=== PATIENT | female | born 1985 | race Hispanic/Latino ===

== ENCOUNTER 2022-04-29 03:26 | Emergency (ER) | payer OTHER ==
[~2022-04-29] VITALS: Ht 172.7 cm; Wt 75.7 kg
[2022-04-29 03:36] VITALS: BP 134/75
[2022-04-29] MEDS ORDERED: CEFTRIAXONE 1G VIAL ONE (03:52)
[2022-04-29] MEDS ORDERED: IBUPROFEN 600 MG TABLET ONE (03:52)
[2022-04-29] MEDS ORDERED: HYDROCODONE/ACETAMINOPHEN 5/325 MG TAB ONE (03:52)
[2022-04-29] MEDS ORDERED: DEXAMETHASONE 4 MG TAB ONE (03:52)
[2022-04-29] MEDS ORDERED: AMOX1TAB16 PO (03:55)
[2022-04-29] MEDS ORDERED: ACET-2079 PO (03:55)
[2022-04-29] MEDS ORDERED: IBUP-2070 PO (03:55)
[2022-04-29] MEDS ORDERED: METH4TAB3 PO (03:55)
[2022-04-29] MEDS ORDERED: HYDROCODONE/ACETAMINOPHEN 5/325 MG TAB PO ONE (04:00)
[2022-04-29] MEDS ORDERED: CEFTRIAXONE 1G VIAL IM ONE (04:00)
[2022-04-29] MEDS ORDERED: IBUPROFEN 600 MG TABLET PO ONE (04:00)
[2022-04-29] MEDS ORDERED: DEXAMETHASONE 4 MG TAB PO SCH (04:00)
== END 2022-04-29 04:07 | disposition home or self-care (01) ==
LOC: EDH 03:26
DX: K04.7 Periapical abscess without sinus (principal); L03.211 Cellulitis of face
CPT/HCPCS: 99284; 96372; J0696; J8540

== ENCOUNTER 2022-09-02 16:50 | Emergency (ER) | payer MEDICAID ==
[~2022-09-02] VITALS: Ht 154.9 cm; Wt 77.1 kg
[~2022-09-02 16:50] MED LIST: ACET-2079 PO; AMOX1TAB16 PO; IBUP-2070 PO; METH4TAB3 PO
[2022-09-02 18:00] VITALS: BP 157/84
[2022-09-02] MEDS ORDERED: KETOROLAC 30MG VIAL (30MG/ML) IM ONE (19:00)
[2022-09-02] MEDS ORDERED: IBUP-2070 PO (19:01)
== END 2022-09-02 19:14 | disposition home or self-care (01) ==
LOC: EDH 16:50
DX: J02.8 Acute pharyngitis due to other specified organisms (principal); B97.89 Other viral agents as the cause of diseases classified elsewhere; Z20.822 Contact with and (suspected) exposure to COVID-19
CPT/HCPCS: 99283; 87635; 87880; 87804 ×2; 96372; C9803; J1885

== ENCOUNTER 2024-05-28 05:59 | Emergency (ER) | payer SELFPAY ==
[~2024-05-28] VITALS: Ht 154.9 cm; Wt 73.5 kg
[2024-05-28] MEDS ORDERED: IBUP-2070 PO (07:51)
[2024-05-28] MEDS ORDERED: AMOX-426 PO (07:51)
[2024-05-28] MEDS: ketOROlac 15MG/ML VIAL (15MG/ML) IM ONE (08:05)
[2024-05-28 08:27] VITALS: BP 150/70; PULSE 90; RESP 16; TEMP 98; O2SAT 98
== END 2024-05-28 09:18 | disposition home or self-care (01) ==
LOC: EDH 05:59
DX: K04.7 Periapical abscess without sinus (principal); L03.211 Cellulitis of face; Z79.899 Other long term (current) drug therapy
CPT/HCPCS: 99283; 81025; 96372; J1885

== ENCOUNTER 2024-12-09 22:25 | Emergency (ER) | payer SELFPAY ==
[~2024-12-09] VITALS: Ht 149.9 cm; Wt 72.6 kg
[~2024-12-09 22:25] MED LIST changes: +AMOX-426 PO
[2024-12-09 22:51] LABS: BASOPHILS # (AUTO) 0.14 K/uL (0.00-0.20); BASOPHILS % (AUTO) 1.3 % (0.0-5.0); EOSINOPHILS # (AUTO) 0.04 K/uL (0.00-0.70); EOSINOPHILS % (AUTO) 0.4 % (0.0-8.0); HEMATOCRIT 39.9 % (36-48); IMMATURE GRANULOCYTE ABSOLUTE 0.06 K/uL (0-1); LYMPHOCYTES % (AUTO) 18.8 % (21.0-51.0); MEAN CORPUSCULAR HEMOGLOBIN 30.5 pg (27.0-33.0); MEAN CORPUSCULAR HGB CONC 34.1 g/dL (32.0-36.0); MEAN CORPUSCULAR VOLUME 89.5 fL (79-99); MONOCYTES # (AUTO) 0.7 K/uL (0.1-1.0); MONOCYTES % (AUTO) 6.4 % (3.0-13.0); NEUTROPHILS # (AUTO) 7.9 K/uL (1.8-7.7); NEUTROPHILS % (AUTO) 72.5 % (40.0-77.0); PLATELET COUNT (AUTO) 250 K/uL (130-400); RED BLOOD CELL COUNT(AUTO) 4.46 MIL/uL (4.00-5.50); RED CELL DISTRIBUTION WIDTH 12.2 % (11.0-15.5); WHITE BLOOD COUNT (AUTO) 10.8 K/uL (4.8-10.8)
[2024-12-09 23:04] LABS: CREATININE 0.8 mg/dL (0.5-1.0)
--- NOTE | 2024-12-09 23:08 | HMCIMG ---
CHEST 1VW HISTORY: Chest pain COMPARISON: None FINDINGS: A frontal projection of the chest was obtained. No acute pulmonary infiltrates is seen. The heart is normal in size. Prominent interstitial markings are seen. No evidence of aortic calcification is seen. IMPRESSION: 1. No acute pulmonary infiltrate is seen.
[2024-12-09 23:20] LABS: POTASSIUM 2.7 mmol/L (3.5-5.1)
[2024-12-09 23:33] LABS: APPEARANCE,URINE CLEAR (CLEAR); BILIRUBIN,URINE NEGATIVE (NEGATIVE); COLOR,URINE COLORLESS (YELLOW); GLUCOSE, URINE (UA) NEGATIVE (NEGATIVE); KETONES,URINE NEGATIVE (NEGATIVE); LEUKOCYTE ESTERASE ,URINE 25 Leu/uL (NEGATIVE); NITRATE,URINE NEGATIVE (NEGATIVE); OCCULT BLOOD,URINE NEGATIVE (NEGATIVE); PH,URINE 6.5 (5.0-8.0); PROTEIN,URINE NEGATIVE (NEGATIVE); UROBILINOGEN,URINE 0.2 mg/dL (0.2-1.0)
[2024-12-09 23:33] LABS: B-TYPE NATRIURETIC PEPTIDE 16 pg/mL (0-100)
[2024-12-09 23:34] LABS: ADD UA MICROSCOPIC YES
[2024-12-09 23:37] LABS: BACTERIA,URINE RARE /HPF (None Seen); RBC,URINE 0-1 /HPF (0-1); SQUAMOUS EPITHELIAL CELL,UR MOD /HPF (0-2); WBC,URINE 0-1 /HPF (0-1)
[2024-12-09 23:40] VITALS: TEMP 97.9
[2024-12-09] MEDS: PoTASSium BIcarbonate/CIT AC 25 MEQ TABLET.EFF PO ONE (23:44)
[2024-12-10 00:30] VITALS: BP 131/67; PULSE 71; RESP 20; O2SAT 97
--- NOTE | 2024-12-10 00:33 | ERN ---
ED Note History of Present Illness Stated Complaint: CHEST PAIN Chief Complaint: Chest Pain Time Seen by MD: 22:34 Time Seen by Midlevel: 22:34 Dictation: The patient is a 38-year-old female with a history of who presents to the emergency department with complaints of chest pain onset Wednesday. Patient reports chest pain is intermediate and reports she initially fell burning sensation and then she started feeling stabbing sensation. Denies any nausea or vomiting, denies abdominal pain. No other complaints reported Allergies: Coded Allergies: No Known Drug Allergies (Verified Allergy, 03/03/13) Home Meds Active Scripts Ibuprofen (Ibuprofen) 600 Mg Tablet, 600 MG PO Q6H PRN for PAIN, #30 TAB Prov:AALIYAH PRETTY MD 05/28/24 Amoxicillin/Potassium Clav (Augmentin 500-125 Tablet) 500 Mg-125 Mg Tablet, 1 EACH PO BID for 7 Days, #14 TAB Prov:AALIYAH PRETTY MD 05/28/24 Ibuprofen (Ibuprofen) 600 Mg Tablet, 600 MG PO Q6H PRN for PAIN, #20 TAB Prov:HIMANSHU MCCLENDON V FRET SAW OPERATOR 09/02/22 Ibuprofen (Ibuprofen) 600 Mg Tablet, 600 MG PO Q6H PRN for PAIN, #30 TAB Prov:IDALMIS LAGUNA MD 04/29/22 Acetaminophen with Codeine (Acetaminophen-Cod #3 Tablet) 1 Each Tablet, 1 TAB PO Q6H PRN for PAIN LEVEL 7 TO 10, #15 TAB Prov:IDALMIS LAGUNA MD 04/29/22 Amoxicillin/Potassium Clav (Amox Tr-K Clv 875-125 mg Tab) 1 Each Tablet, 1 EACH PO BID for 7 Days, #14 TAB Prov:IDALMIS LAGUNA MD 04/29/22 Methylprednisolone (Medrol) 4 Mg Tab.ds.pk, 4 MG PO AD for 5 Days, #1 KIT Prov:IDALMIS LAGUNA MD 04/29/22 Past Medical History Past Medical History: No Pertinent History Surgical History: BTL, Family History: Negative Social History: Negative, Lives with family History: Not Applicable RN Note Reviewed/Agreed w/PFSH: Yes Review of System Dictation Constitutional: Negative for fever,chills, and weight loss Eyes: Negative for injury, pain,redness, and discharge ENT: Negative for injury,pain or swelling Cardiovascular: Negative for palpitations, and edema positive for chest pain Respiratory: Negative for shortness of breath, cough, and wheezing, Abdomen/GI: Negative for abdominal pain, nausea, vomiting, diarrhea, and constipation Back: Negative for injury and pain : Negative for injury, bleeding and discharge MS/Extremity: Negative for injury and deformity Skin: Negative for rash, and discoloration Neuro: Negative for headache, weakness, numbness, tingling, and seizure Psych: Negative for suicide ideation, homicidal ideation, and hallucinations Initial Vital Sign VS Vital Signs Date Time Temp Pulse Resp B/P (MAP) Pulse Ox O2 Delivery O2 Flow Rate FiO2 12/09/24 22:26 97.9 68 18 157/112 100 Room Air 12/09/24 23:40 0 21 Physical Exam Dictation Vital Signs reviewed General Appearance: Alert, oriented x 3, no acute distress, well developed, nourished. Head and Face: non-traumatic. Eyes: PERRL, pink conjunctivas, eyelid no trauma, anterior chamber with arcus senilis. Ears: Pinnas intact and no signs of trauma or erythema ear canals clear and no discharge TM no erythema Nose: No discharge, no bleeding. Oropharynx: Mouth normal, tongue pink. pharynx clear,no erythema, tonsils no exudates, no abscesses noted, mucous membrane moist Neck: Supple, non-tender, no thyromegaly, no masses, no JVD, no bruits Breast:Deferred Chest:No tenderness, no crepitus, no paradoxical movement, no retractions Lungs:Clear, well-ventilated, symmetric, no rales, no wheezing, no rhonchi, no stridor, good breath sounds bilaterally Heart: Regular rate, regular rhythm, no murmur, no gallops Vascular: no peripheral edema, Abdomen: Soft, positive bowel sounds, nondistended, no guarding, nontender, no rebound, no masses no hepatomegaly, no splenomegaly, no Short's sign, no hernias. Rectal: Deferred Genital: Deferred Neurological: Normal speech, motor function intact, sensory function intact Musculoskeletal: Neck nontender, full range of motion, back nontender, full range of motion, Extremities: nontender, full range of motion Skin: Color pink, dry, no turgor, no rash, no lacerations, no abrasions, no contusions. Lymphatic: Deferred Results (Laboratory/Radiology) Laboratory/Radiology Laboratory Tests Test 12/09/24 22:44 12/09/24 23:00 12/10/24 00:28 White Blood Count 10.8 K/uL (4.8-10.8) Red Blood Count 4.46 MIL/uL (4.00-5.50) Hemoglobin 13.6 g/dL (12.0-16.0) Hematocrit 39.9 % (36-48) Mean Corpuscular Volume 89.5 fL (79-99) Mean Corpuscular Hemoglobin 30.5 pg (27.0-33.0) Mean Corpuscular Hemoglobin Concent 34.1 g/dL (32.0-36.0) Red Cell Distribution Width 12.2 % (11.0-15.5) Platelet Count 250 K/uL (130-400) Mean Platelet Volume 10.7 fL (7.5-10.5) H Immature Granulocyte % (Auto) 0.6 % (0-1) Neutrophils (%) (Auto) 72.5 % (40.0-77.0) Lymphocytes (%) (Auto) 18.8 % (21.0-51.0) L Monocytes (%) (Auto) 6.4 % (3.0-13.0) Eosinophils (%) (Auto) 0.4 % (0.0-8.0) Basophils (%) (Auto) 1.3 % (0.0-5.0) Neutrophils # (Auto) 7.9 K/uL (1.8-7.7) H Lymphocytes # (Auto) 2.0 K/uL (1.0-4.8) Monocytes # (Auto) 0.7 K/uL (0.1-1.0) Eosinophils # (Auto) 0.04 K/uL (0.00-0.70) Basophils # (Auto) 0.14 K/uL (0.00-0.20) Absolute Immature Granulocyte (auto 0.06 K/uL (0-1) Nucleated Red Blood Cells 0.0 % (0.0-0.19) Sodium Level 135 mmol/L (136-145) L Potassium Level 2.7 mmol/L (3.5-5.1) *L 3.9 mmol/L (3.5-5.1) Chloride Level 98 mmol/L (101-111) L Carbon Dioxide Level 31 mmol/L (21-32) Blood Urea Nitrogen 11 mg/dL (7-18) Creatinine 0.8 mg/dL (0.5-1.0) Glomerular Filtration Rate Calc 97 mL/min (>90) Random Glucose 91 mg/dL (70-105) Total Calcium 9.4 mg/dL (8.5-10.1) Magnesium Level 2.00 mg/dL (1.80-2.40) Total Creatine Kinase 64 U/L (21-232) Troponin I High Sensitivity 5 ng/L (4-50) 6 ng/L (4-50) B-Type Natriuretic Peptide 16 pg/mL (0-100) Serum Test, Qualitative NEGATIVE (NEGATIVE) Urine Color COLORLESS (YELLOW) Urine Appearance CLEAR (CLEAR) Urine pH 6.5 (5.0-8.0) Urine Specific [place] 1.007 (1.001-1.031) Urine Protein NEGATIVE mg/dL (NEGATIVE) Urine Glucose (UA) NEGATIVE mg/dL (NEGATIVE) Urine Ketones NEGATIVE mg/dL (NEGATIVE) Urine Occult Blood NEGATIVE (NEGATIVE) Urine Nitrate NEGATIVE (NEGATIVE) Urine Bilirubin NEGATIVE mg/dL (NEGATIVE) Urine Urobilinogen 0.2 mg/dL (0.2-1.0) Urine Leukocyte Esterase 25 [place]/uL (NEGATIVE) H Urine RBC 0-1 /HPF (0-1) Urine WBC 0-1 /HPF (0-1) Urine Squamous Epithelial Cells MOD /HPF (0-2) Urine Bacteria RARE /HPF (None Seen) REASON: CHEST PAIN ORDERING PHYSICIAN: AALIYAH PRETTY MD PROCEDURE: CXR1VW - CHEST 1VW CHEST 1VW HISTORY: Chest pain COMPARISON: None FINDINGS: A frontal projection of the chest was obtained. No acute pulmonary infiltrates is seen. The heart is normal in size. Prominent interstitial markings are seen. No evidence of aortic calcification is seen. IMPRESSION: 1. No acute pulmonary infiltrate is seen. Labs Reviewed?: Yes EKG: (+) rhythm (Sinus rhythm) EKG Comment: Date:12/09/2024 Time:2240 Ventricular rate:65 WI interval:156 QRS duration:75 QT/QTc:415 EKG interpretation: Sinus rhythm Reviewed by ED Attending no STEMI ED Course ED Course Orders Procedure Category Date Status Time Vital Signs Per CPOE 12/09/24 Transmitted Routine 22:27 B-Type Natriuretic LAB 12/09/24 Complete Peptide 22:27 Chest 1vw RAD 12/09/24 Resulted 22:27 12 Lead Ekg Tracing- EKG 12/09/24 Logged Technical 22:27 Oxygen By Nc/Pulse Ox CPOE 12/09/24 Transmitted 22:27 Maintain Iv CPOE 12/09/24 Transmitted 22:27 Iv Insertion CPOE 12/09/24 Transmitted 22:27 Cardiac Monitoring CPOE 12/09/24 Transmitted 22:27 Pulse Oximetry With CPOE 12/09/24 Transmitted Vs And Prn 22:27 Cbc With Differential LAB 12/09/24 Complete 22:27 Activity: Br W/Brp CPOE 12/09/24 Transmitted With Assist 22:27 Creatine Kinase, Total LAB 12/09/24 Complete 22:27 Troponin I High LAB 12/09/24 Complete Sensitivity 22:27 Urinalysis Profile LAB 12/09/24 Complete 22:27 Basic Metabolic Panel LAB 12/09/24 Complete 22:27 Testing, LAB 12/09/24 Complete Serum Hcg 23:20 Potassium Bicarb/Cit PHA 12/09/24 Complete Ac 25meq (K-Lyte Ta 23:30 Magnesium LAB 12/09/24 Complete 23:23 Troponin I High LAB 12/10/24 Complete Sensitivity 00:18 Potassium LAB 12/10/24 Complete 00:18 Current Medications Medications (Trade) Dose Ordered Sig/Vicente Route PRN Reason Start Time Stop Time Status Last Admin Dose Admin Potassium Bicarbonate (K-Lyte Tablet Eff 25 Meq Tablet.eff) 50 meq ONCE ONCE PO 12/09/24 23:30 12/09/24 23:31 DC 12/09/24 23:44 Vital Signs Date Time Temp Pulse Resp B/P (MAP) Pulse Ox O2 Delivery O2 Flow Rate FiO2 12/10/24 00:30 71 20 131/67 97 Room Air* 0 21 12/09/24 23:40 97.9 74 18 134/65 97 Room Air* 0 21 12/09/24 22:26 97.9 68 18 157/112 100 Room Air HEART Score Response (Comments) Value History: Low suspicion (0) 0 EKG: Repolarization changes 1 Age: < 45yrs (0) 0 Risk Factors: No known risk factors (0) 0 Initial Troponin: Normal limit (0) 0 Total 1 Medical Decision Making MDM The patient is a 38-year-old female with a history of who presents to the emergency department with complaints of chest pain onset Wednesday. Patient reports chest pain is intermediate and reports she initially fell burning sensation and then she started feeling stabbing sensation. Denies any nausea or vomiting, denies abdominal pain. No other complaints reported. Patient does report she has been under a lot of stress at home. CBC showed no leukocytosis, no anemia, chemistry showed hypokalemia of 2.7 which was replaced with oral potassium. Patient's potassium improved. Mild hyponatremia, hypochloremia. Negative troponin x2. Chest x-ray unremarkable. Patient with low risk for any cardiac etiology. Chest pain could be related due to stress or hypokalemia. Patient with no nausea or vomiting. No acute distress will be discharged to follow up with PCP. Differential diagnosis: ACS, pneumothorax, pneumonia, dehydration, anxiety Need for hospitalization: Patient does not meet criteria for hospitalization. There are no social concerns with this patient. DX & DISP Disposition: Discharge Departure Impression: Primary Impression: Atypical chest pain Additional Impression: Hypokalemia Condition: Stable Additional Instructions: Please follow up with your primary doctor in 1-2 days. If symptoms worsen please return to ER. Your potassium was low in the ER and was replaced improving your potassium levels. FOLLOW-UP WITH PRIMARY CARE PROVIDER IN 1 TO 2 DAYS. TAKE MEDICATIONS DIRECTED HERE IN THE EMERGENCY ROOM. OKAY TO CONTINUE HOME MEDICATIONS UNLESS OTHERWISE DISCUSSED DURING YOUR VISIT IN THE EMERGENCY ROOM TODAY. RETURN TO YOUR NEAREST EMERGENCY ROOM IF SYMPTOMS WORSEN OR IF THERE IS NO IMPROVEMENT. CALL 911 IF YOU NEED IMMEDIATE ASSISTANCE. TAKE TYLENOL OR MOTRIN [id number] NEEDED AND IF NO CONTRAINDICATIONS ARE PRESENT. INCREASE ORAL HYDRATION. A WOUND CULTURE OR URINE CULTURE WAS ORDERED HERE IN THE EMERGENCY ROOM DEPARTMENT PLEASE FOLLOW-UP WITH PRIMARY CARE PROVIDER AND ADVISE THEM TO GET REPEAT PORTS FROM OUR FACILITY. IF YOU HAD ANY [employer] WRAP/SPLINTS THAT WERE APPLIED HERE, PLEASE DO NOT REMOVE THEM UNTIL YOU SEE YOUR PRIMARY CARE OR SPECIALTY. Referrals: SELF,REFERRAL (PCP) Time of Disposition: 00:52 I have reviewed the case, and I agree with, Diagnosis and Plan SOTO EDEN Dec 10, 2024 00:33
--- NOTE | 2024-12-10 15:28 | EKG ---
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
== END 2024-12-10 01:00 | disposition home or self-care (01) ==
LOC: EDH 22:25
DX: R07.89 Other chest pain (principal); E87.6 Hypokalemia; Z98.51 Tubal ligation status
CPT/HCPCS: 36415; 71045; 80048; 81001; 82550; 83735; 83880; 84132; 84484; 84703; 85025; 93005; 99285

== ENCOUNTER 2025-09-12 12:29 | Emergency (ER) | payer SELFPAY ==
[~2025-09-12] VITALS: Ht 154.9 cm; Wt 75.3 kg
[~2025-09-12 12:29] MED LIST changes: +IBUP-1492 PO; -IBUP-2070 PO
[2025-09-12 12:31] VITALS: BP 139/87; PULSE 58; RESP 18; TEMP 97.8
--- NOTE | 2025-09-12 14:26 | ERN ---
ED Note History of Present Illness Stated Complaint: BACK PAIN Chief Complaint: Back Pain or Injury Time Seen by MD: 12:36 Time Seen by Midlevel: 13:00 Dictation: 39-year-old female coming in with complaints of bilateral lower back pain. Patient states it has been going on for the last couple of days. Patient states she was seen at [facility] this morning but they did not do any imaging so we decided to come to this facility and be re-evaluated. Patient denies any trauma however states he does has a history of herniated disc and has been working out at the gym. Denies any extremity weakness, numbness, tingling. Denies any saddle paresthesias. Allergies: Coded Allergies: No Known Drug Allergies (Verified Allergy, 03/03/13) Home Meds Active Scripts Ibuprofen (Ibuprofen) 600 Mg Tablet, 600 MG PO Q6H PRN for PAIN, #30 TAB Prov:AALIYAH PRETTY MD 05/28/24 Amoxicillin/Potassium Clav (Augmentin 500-125 Tablet) 500 Mg-125 Mg Tablet, 1 EACH PO BID for 7 Days, #14 TAB Prov:AALIYAH PRETTY MD 05/28/24 Ibuprofen (Ibuprofen) 600 Mg Tablet, 600 MG PO Q6H PRN for PAIN, #20 TAB Prov:HIMANSHU MCCLENDON 09/02/22 Ibuprofen (Ibuprofen) 600 Mg Tablet, 600 MG PO Q6H PRN for PAIN, #30 TAB Prov:IDALMIS LAGUNA MD 04/29/22 Acetaminophen with Codeine (Acetaminophen-Cod #3 Tablet) 1 Each Tablet, 1 TAB PO Q6H PRN for PAIN LEVEL 7 TO 10, #15 TAB Prov:IDALMIS LAGUNA MD 04/29/22 Amoxicillin/Potassium Clav (Amox Tr-K Clv 875-125 mg Tab) 1 Each Tablet, 1 EACH PO BID for 7 Days, #14 TAB Prov:IDALMIS LAGUNA MD 04/29/22 Methylprednisolone (Medrol) 4 Mg Tab.ds.pk, 4 MG PO AD for 5 Days, #1 KIT Prov:IDALMIS LAGUNA MD 04/29/22 Past Medical History Past Medical History: No Pertinent History, Anxiety Additional Past Medical Hx: CHRONIC BACK PAIN Surgical History: BTL, Family History: Negative Social History: Negative, Lives with family History: Not Applicable LMP: Aug 20, 2025 Review of System Dictation Constitutional: Negative for fever,chills, and weight loss Eyes: Negative for injury, pain,redness, and discharge ENT: Negative for injury,pain or swelling Cardiovascular: Negative for chest pain, palpitations, and edema Respiratory: Negative for shortness of breath, cough, and wheezing, Abdomen/GI: Negative for abdominal pain, nausea, vomiting, diarrhea, and constipation Back: Complaining of bilateral lower back pain : Negative for injury, bleeding and discharge MS/Extremity: Negative for injury and deformity Skin: Negative for rash, and discoloration Neuro: Negative for headache, weakness, numbness, tingling, and seizure Psych: Negative for suicide ideation, homicidal ideation, and hallucinations Review of Systems: was completed Initial Vital Sign VS Vital Signs Date Time Temp Pulse Resp B/P (MAP) Pulse Ox O2 Delivery O2 Flow Rate FiO2 09/12/25 12:31 97.9 58 18 139/87 100 Room Air 0 Physical Exam Dictation General: awake, alert, NAD Head/Face: Normocephalic, atraumatic Eyes: PERRL, EOMI, vision at baseline ENT: oral cavity clear, TMs clear, no signs of infection Neck: Trachea midline, supple, no nuchal rigidity Cardiovascular: RRR, normal S1/S2, No MRGs, no JVD Respiratory: CTAB, no respiratory distress, No rales or wheezes Abdomen: Soft, non-tender, non-distended, normal bowel sounds, no guarding or rebound. Skin: Warm, dry, normal turgor, no rash MS/Extremity: Pulses equal, no cyanosis, neurovascular intact, FROM, no midline L-spine tenderness on palpation, tenderness is more off to the sides of the lumbar spine most consistent with muscle spasm Neuro: COAx4, GCS 15, strength 5/5, CN 2-12 intact, normal cerebellar exam, normal gait, Psych: Normal behavior, mood, and affect normal Results (Laboratory/Radiology) X-RAY Comment: [address] [place] [id number] IMAGING REPORT Signed PATIENT: ANTONY LEWIS MR#: [id number] : 1985 SEX: F AGE: 39 LOCATION: [facility] ORDER 46 STATUS: REG ER REPORT#: [id number] SERVICE 45 REASON: LOWER BACK PAIN ORDERING PHYSICIAN: KAYCEE TAPIA CNP PROCEDURE: LUMB 2 3VW - LUMBAR SPINE 2-3VWS EXAM: CR Lumbar Spine, 3 View. CLINICAL HISTORY: LOWER BACK PAIN COMPARISON: None provided. FINDINGS: BONES: No acute fracture or aggressive appearing osseous lesion. ALIGNMENT: Alignment is within normal limits. No significant scoliosis. DISCS / DEGENERATIVE CHANGES: The disc spaces are preserved. SOFT TISSUES: The soft tissues are unremarkable. IMPRESSION: No acute lumbar spine abnormality evident. /[place] DICTATED BY: FRANKLYN BARAJAS Jr., MD DATE: 09/12/251554 ELECTRONICALLY SIGNED BY: FRANKLYN BARAJAS Jr., MD DATE: 09/12/251554 ED Course ED Course Orders Procedure Category Date Status Time Lumbar Spine 2-3vws RAD 09/12/25 Resulted 13:46 Hydrocodone/Apap PHA 09/12/25 Complete 5/325 ([place] 5/325mg) 14:00 Methocarbamol PHA 09/12/25 Complete (Methocarbamol) 13:46 Ondansetron Odt 4mg PHA 09/12/25 Complete Tab (Zofran 4mg Odt) 15:30 Morphine 2mg Syg PHA 09/12/25 Complete (Morphine 2mg Syg) 15:30 Current Medications Medications (Trade) Dose Ordered Sig/Vicente Route PRN Reason Start Time Stop Time Status Last Admin Dose Admin Acetaminophen/ Hydrocodone Bitart (NORco 5/325MG) 1 tab ONCE ONCE PO 09/12/25 14:00 09/12/25 14:01 DC 09/12/25 14:40 Methocarbamol (methoCARBamol) 1,000 mg ONCE STAT PO 09/12/25 13:46 09/12/25 13:49 DC 09/12/25 14:40 Morphine Sulfate (morPHINE 2MG SYG) 2 mg ONCE ONCE IM 09/12/25 15:30 09/12/25 15:36 DC Ondansetron HCl (zoFRAN 4MG ODT) 4 mg ONCE ONCE SL 09/12/25 15:30 09/12/25 15:36 DC Vital Signs Date Time Temp Pulse Resp B/P (MAP) Pulse Ox O2 Delivery O2 Flow Rate FiO2 09/12/25 12:31 97.9 58 18 139/87 100 Room Air 0 Medical Decision Making MDM MDM: 39-year-old female presents with a bilateral lower back pain worse at the lateral paraspinal areas on palpation. States worse on the left side. Denies any blood in urine, urinary problems, no CVA tenderness. Pain is nontraumatic and gradual onset. No red flags denies any saddle anesthesia, urinary or bladder incontinence or retention, lower extremity weakness or paresthesias. Denies any IV drug use, cancer, fever recent traumas. Patient states she has been working out for often in the gym in his pain has a worsened since. She was evaluated at [facility] earlier today where she received NSAIDs and started with a minimal improvement in his requesting imaging. Lumbar x-ray shows normal alignment no acute osseous abnormalities, no collapsed or listhesis. Patient received muscle relaxer, [place], she states the pain has been it is still there, ordered morphine IM. presentation consistent with a mechanical low back pain likely muscular strain/spasm. No clinical indication for CT or MRI and ED given lack of neurological deficits or red flag features. Patient has a for outpatient management. Patient will be discharged to follow up with PCP in 1-2 days. Educated to continue alternating Tylenol, NSAIDs and I will prescribe her some muscle relaxer. Eighty strict return precautions like new weakness, numbness, bladder or bowel incontinence, inability to ambulate fever or uncontrolled pain. Differentials: Lumbar muscle strain/spasm, low back pain, right Lester pyelonephritis Rationale: Tests considered and ordered secondary to shared decision making include: Previous outside records reviewed: Old ER visits. Risk of complication and/or morbidity or mortality of patient management: None Medications-Per medication reconciliation Need for hospitalization: Patient does not meet criteria for hospitalization. Need for emergency major/minor surgery: No There are no social concerns with this patient. Prescription drug management Prescriptions will include symptomatic care Patient's prior external medical records from other ER visits were reviewed by me as indicated. Prior testing and results from previous visits were reviewed. Prior tests were taken into account with medical decision making and resource utilization, independent historian/historians were used to obtain complete medical history. I independently interpreted the test that were performed, results were reviewed by me and considered findings on radiology if ordered. Medical management and examination interpretation discussions were had by me with other qualified healthcare professionals as indicated for the patient's care. DX & DISP Disposition: Discharge Departure Impression: Primary Impression: Acute bilateral back pain Additional Impression: Muscle spasm Condition: Stable Scripts Methocarbamol (Methocarbamol) 1,000 Mg Tablet 1000 MG PO TID PRN for MUSCLE SPASMS for 5 Days, #15 TAB Prov: KAYCEE TAPIA CNP 09/12/25 Additional Instructions: Take the muscle relaxer with the medication that was prescribed to you at [facility] that includes the ibuprofen and Tylenol and lidocaine patches. Return to the facility if you develop any urinary retention, incontinence of your urine or bowel. Inability to walk, or fevers persistent severe pain. Otherwise follow up with your primary care provider in 2-3 days. Referrals: DELORIS MCGEE MD (PCP) Time of Disposition: 15:47 I have reviewed the case, and I agree with, Diagnosis and Plan KAYCEE TAPIA CNP Sep 12, 2025 14:26
[2025-09-12] MEDS: HYDROcodone/APAP 5/325 1 TAB TABLET PO ONE (14:40)
--- NOTE | 2025-09-12 14:55 | HMCIMG ---
EXAM: CR Lumbar Spine, 3 View. CLINICAL HISTORY: LOWER BACK PAIN COMPARISON: None provided. FINDINGS: BONES: No acute fracture or aggressive appearing osseous lesion. ALIGNMENT: Alignment is within normal limits. No significant scoliosis. DISCS / DEGENERATIVE CHANGES: The disc spaces are preserved. SOFT TISSUES: The soft tissues are unremarkable. IMPRESSION: No acute lumbar spine abnormality evident. /[place]
[2025-09-12] MEDS ORDERED: METH100054 PO (15:48)
== END 2025-09-12 16:49 | disposition home or self-care (01) ==
LOC: EDH 12:29
DX: M62.830 Muscle spasm of back (principal); M54.50 Low back pain, unspecified; G89.29 Other chronic pain; Z98.51 Tubal ligation status
CPT/HCPCS: 72100; 99284

== ENCOUNTER 2025-09-14 12:31 | Emergency (ER) | payer SELFPAY ==
[~2025-09-14] VITALS: Ht 154.9 cm; Wt 75.3 kg
[~2025-09-14 12:31] MED LIST changes: +METH100054 PO
--- NOTE | 2025-09-14 13:03 | ERN ---
General Chief Complaint: Low Back Pain/Injury Stated Complaint: LOWER BACK PAIN Time Seen by MD: 12:35 History of Present Illness Initial Comments The patient is a 39-year-old female who came to the ER for complaint of severe lower back pain. As per the patient, she came to the ER 2 days ago for similar complaint after which she was given pain medications. The patient has a history of herniated disc for which she exercises regularly but now the pain is severe. The patient has no saddle anesthesia, fever, chills or vomiting Timing/Duration: 1 week Modifying Factors: improves with movement Allergies: Coded Allergies: No Known Drug Allergies (Verified Allergy, 03/03/13) Home Meds Active Scripts Acetaminophen (Acetaminophen) 500 Mg Tablet, 2 TAB PO Q6HPRN PRN for pain or fever for 10 Days, #80 TAB 0 Refills Prov:ADRIANA DIAZ MD 09/14/25 Lidocaine (Lidocaine Pain Relief) 4 % Adh..patch, 1 PATCH TP DAILY for 10 Days, #10 PATCH 0 Refills Prov:ADRIANA DIAZ MD 09/14/25 Meloxicam (Meloxicam) 15 Mg Tablet, 1 TAB PO DAILY for 10 Days, #10 TAB 0 Refills Prov:ADRIANA DIAZ MD 09/14/25 Methocarbamol (Methocarbamol) 1,000 Mg Tablet, 1000 MG PO TID PRN for MUSCLE SPASMS for 5 Days, #15 TAB Prov:KAYCEE TAPIA LINE COOK 09/12/25 Ibuprofen (Ibuprofen) 600 Mg Tablet, 600 MG PO Q6H PRN for PAIN, #30 TAB Prov:AALIYAH PRETTY MD 05/28/24 Amoxicillin/Potassium Clav (Augmentin 500-125 Tablet) 500 Mg-125 Mg Tablet, 1 EACH PO BID for 7 Days, #14 TAB Prov:AALIYAH PRETTY MD 05/28/24 Ibuprofen (Ibuprofen) 600 Mg Tablet, 600 MG PO Q6H PRN for PAIN, #20 TAB Prov:HIMANSHU MCCLENDON 09/02/22 Ibuprofen (Ibuprofen) 600 Mg Tablet, 600 MG PO Q6H PRN for PAIN, #30 TAB Prov:IDALMIS LAGUNA MD 04/29/22 Acetaminophen with Codeine (Acetaminophen-Cod #3 Tablet) 1 Each Tablet, 1 TAB PO Q6H PRN for PAIN LEVEL 7 TO 10, #15 TAB Prov:IDALMIS LAGUNA MD 04/29/22 Amoxicillin/Potassium Clav (Amox Tr-K Clv 875-125 mg Tab) 1 Each Tablet, 1 EACH PO BID for 7 Days, #14 TAB Prov:IDALMIS LAGUNA MD 04/29/22 Methylprednisolone (Medrol) 4 Mg Tab.ds.pk, 4 MG PO AD for 5 Days, #1 KIT Prov:IDALMIS LAGUNA MD 04/29/22 Past Medical History Past Medical History: No Pertinent History, Anxiety Medical History Other: CHRONIC BACK PAIN Past Surgical History: BTL, Family History Family History: Negative Social History Social History: Negative, Lives with family Female( History) History: Not Applicable Constitutional: (-) chills, (-) diaphoresis, (-) fever, (-) malaise, (-) weakness, (-) other documentation EENTM: (-) eye pain, (-) blurred vision, (-) tearing, (-) double vision, (-) ear pain, (-) ear discharge, (-) nose pain, (-) nose congestion, (-) throat pain, (-) Throat swelling, (-) mouth pain, (-) tooth pain, (-) mouth swelling, (-) other documentation Respiratory: (-) cough, (-) orthopnea, (-) short of breath, (-) stridor, (-) wheezing, (-) other documentation Cardiovascular: (-) chest pain, (-) edema, (-) palpitations, (-) syncope, (-) dyspnea on exertion, (-) other documentation Gastrointestinal/Abdominal: (-) nausea, (-) vomiting, (-) diarrhea, (-) abdominal pain, (-) abdominal distention, (-) constipation, (-) rectal bleeding, (-) dark stool/melena, (-) other documentation Musculoskeletal: (+) back pain Neuro: (-) altered mental status, (-) headache, (-) syncope, (-) paralysis, (-) numbness, (-) seizure, (-) pre-existing deficit, (-) tremors, (-) weakness, (-) dizziness, (-) slurred speech, (-) vertigo, (-) other documentation Physical Exam General Appearance: (-) no apparent distress, (-) apparent distress, (-) mild distress, (-) moderate distress, (-) severe distress, (-) thin, (-) obese, (-) combative, (-) cachetic, (-) anxious, (-) other documentation Orientation: (-) alert, (-) oriented x 3, (-) disoriented, (-) other documentation Ear, Nose, Throat: (-) hearing grossly normal, (-) normal ENT inspection, (-) moist mucous membraine, (-) normal pharynx, (-) normal TM, (-) abnormal TM, (-) pharyngeal erythema, (-) sinus drainange, (-) sinus pain, (-) tonsillar exudate, (-) tonsillar swelling, (-) nasal drip, (-) nasal congestion, (-) hearing decreased, (-) dry mucous membraine, (-) other documentation Neck: (-) normal inspection, (-) supple, (-) full range of motion, (-) no JVD, (-) non-tender, (-) no bruit, (-) tender, (-) limited range of motion, (-) tender lateral, (-) tender midline, (-) thyromegaly, (-) lymphadenopathy, (-) masses, (-) carotid bruit, (-) other documentaion Respiratory: (-) chest non-tender, (-) lungs clear, (-) well ventilated, (-) decreased breath sounds, (-) retractions, (-) abnormal breath sound, (-) crackles, (-) plerual rub, (-) rales, (-) rhonchi, (-) stridor, (-) wheezing, (- ) other documentation Heart: (-) regular, (-) no gallop, (-) murmur, (-) irregular, (-) bradycardia, (-) tachycardia, (-) systolic murmur, (-) diastolic murmur, (-) extra beats, (-) friction rub, (-) gallop/S3, (-) gallop/S4, (-) other documentation Gastrointestinal: (-) soft, (-) non-tender, (-) no organomegaly, (-) bowel sound present, (-) distended, (-) tender, (-) abnormal bowel sounds, (-) bowel sound absent, (-) rebound, (-) koch's sign, (-) guarding, (-) hernia, (-) mass, (-) pulsatile mass, (-) CVA tenderness, (-) hepatomegaly, (-) spleenomegaly, (-) other documentation, (-) McBerney's, (-) other documentation Back Comment Pain 10/10 in the lower back on the left side Extremities: (-) normal range of motion, (-) non-tender, (-) normal inspection, (-) no pedal edema, (-) no calf tenderness, (-) normal capillary refill, (-) pelvis stable, (-) calf tenderness, (-) inflammation, (-) pedal edema, (-) slow capillary refill, (-) swelling, (-) other Results Laboratory and Microbiology Lab and Micro Result Laboratory Tests Test 09/14/25 15:54 Serum Test, Qualitative NEGATIVE (NEGATIVE) MDM MDM: Differential diagnosis: Back pain The patient was seen and examined in the ER. The patient has no saddle anesthesia or sensory deficit. The patient is a fair disc herniation and was here 2 days ago for similar complaint. The patient was given Dilaudid, lidocaine patch, acetaminophen and ketorolac. It was discussed with the patient that if he needs to be seen by a neurosurgeon for her back and for consider physical therapy. CT lumbar spine is unremarkable Continue her pain medication with muscle relaxant ED Course Orders Procedure Category Date Status Time Hydromorphone 1 Mg PHA 09/14/25 Complete Inj (Dilaudid 1mg Inj 13:00 Ketorolac PHA 09/14/25 Complete Tromethamine 15mg/Ml 13:00 Acetaminophen PHA 09/14/25 Complete (Acetaminophen 13:00 Lidocaine (Lidocaine PHA 09/14/25 Complete Patch 4%) 13:00 Hydromorphone 1 Mg PHA 09/14/25 In Process Inj (Dilaudid 1mg Inj 15:30 Ct Lumbar Spine W/O CT 09/14/25 Resulted Contrast 15:30 Testing, LAB 09/14/25 Complete Serum Hcg 15:48 Current Medications Medications (Trade) Dose Ordered Sig/Vicente Route PRN Reason Start Time Stop Time Status Last Admin Dose Admin Acetaminophen (acetaMINOPHEN 1,000MG/100ML) 1,000 mg ONCE ONCE IVPB 09/14/25 13:00 09/14/25 13:01 DC 09/14/25 14:23 Hydromorphone HCl (DiLAUDid 1MG INJ) 1 mg ONCE IVP 09/14/25 15:30 09/14/25 19:30 09/14/25 15:24 Hydromorphone HCl (DiLAUDid 1MG INJ) 1 mg ONCE ONCE IVP 09/14/25 13:00 09/14/25 13:01 DC 09/14/25 14:33 Ketorolac Tromethamine (toRADol) 15 mg ONCE ONCE IV 09/14/25 13:00 09/14/25 13:01 DC 09/14/25 14:32 Lidocaine (Lidocaine Patch 4%) 1 each ONCE ONCE TP 09/14/25 13:00 09/14/25 13:01 DC 09/14/25 14:33 Vital Signs Date Time Temp Pulse Resp B/P (MAP) Pulse Ox O2 Delivery O2 Flow Rate FiO2 09/14/25 14:41 98.1 96 22 156/77 98 Room Air* 0 21 09/14/25 12:32 97.7 49 20 148/90 97 Room Air DX & DISP Disposition: Discharge Departure Impression: Primary Impression: Back pain Condition: Stable Scripts Acetaminophen (Acetaminophen) 500 Mg Tablet 2 TAB PO Q6HPRN PRN for pain or fever for 10 Days, #80 TAB 0 Refills Prov: ADRIANA DIAZ MD 09/14/25 Lidocaine (Lidocaine Pain Relief) 4 % Adh..patch 1 PATCH TP DAILY for 10 Days, #10 PATCH 0 Refills Prov: ADRIANA DIAZ MD 09/14/25 Meloxicam (Meloxicam) 15 Mg Tablet 1 TAB PO DAILY for 10 Days, #10 TAB 0 Refills Prov: ADRIANA DIAZ MD 09/14/25 Additional Instructions: *Follow up with your primary care physician in 2 - 3 days after discharge. *Continue all medications as prescribed. Do not discontinue or change dosages without consulting your PCP. *Seek immediate medical attention if you experience chest pain, SOB or severe headache. Referrals: DELORIS MCGEE MD (PCP) I performed a substantive portion of the visit. I have reviewed and personally made and approve the management plan that is documented in the notes by myself with JERMAINE/resident. I acknowledged full responsibility for the patient's management plan. 39-year-old with musculoskeletal type back pain. Pain was eventually managed with IV opiate pain control. She was having some midline tenderness with CT scan was ordered which did not show any major abnormalities. No red flags otherwise. Discharge ADRIANA DIAZ MD Sep 14, 2025 13:03 PETROS MACE DO Sep 14, 2025 17:47
--- NOTE | 2025-09-14 13:08 | ERN ---
ED Note History of Present Illness Stated Complaint: LOWER BACK PAIN Chief Complaint: Low Back Pain/Injury Time Seen by MD: 12:47 Time Seen by Midlevel: 12:50 Dictation: Ms. Connell is a 39-year-old female with history of obesity, anxiety, and chronic low back pain/herniated disc who presented to the emergency department this afternoon for evaluation of back pain. She states that she has chronic low back pain with history of herniated disc but on Wednesday pain worsened. She states she was seen at another ER on Wednesday morning where she received doses Toradol and a steroid injection. Pain persisted so she came to this ED also on Wednesday where she was given Tylenol No. 3 and prescribed a muscle relaxant. She states that she already has this muscle relaxant at home as it has been prescribed by her dentist. She states she did take a tramadol given to her by her father. She was concerned about mixing the tramadol and the muscle relaxant together so she did not take it. She states today the pain is severe with a sharp stinging type pain to left lower back; just above the buttocks. She denies incontinence of bowel or bladder, urinary retention, saddle anesthesia, or lower extremity weakness. Her PCP office at the [facility] is not open today. Allergies: Coded Allergies: No Known Drug Allergies (Verified Allergy, 03/03/13) Home Meds Active Scripts Methocarbamol (Methocarbamol) 1,000 Mg Tablet, 1000 MG PO TID PRN for MUSCLE SPASMS for 5 Days, #15 TAB Prov:KAYCEE TAPIA CNP 09/12/25 Ibuprofen (Ibuprofen) 600 Mg Tablet, 600 MG PO Q6H PRN for PAIN, #30 TAB Prov:AALIYAH PRETTY MD 05/28/24 Amoxicillin/Potassium Clav (Augmentin 500-125 Tablet) 500 Mg-125 Mg Tablet, 1 EACH PO BID for 7 Days, #14 TAB Prov:AALIYAH PRETTY MD 05/28/24 Ibuprofen (Ibuprofen) 600 Mg Tablet, 600 MG PO Q6H PRN for PAIN, #20 TAB Prov:HIMANSHU MCCLENDONP 09/02/22 Ibuprofen (Ibuprofen) 600 Mg Tablet, 600 MG PO Q6H PRN for PAIN, #30 TAB Prov:IDALMIS LAGUNA MD 04/29/22 Acetaminophen with Codeine (Acetaminophen-Cod #3 Tablet) 1 Each Tablet, 1 TAB PO Q6H PRN for PAIN LEVEL 7 TO 10, #15 TAB Prov:IDALMIS LAGUNA MD 04/29/22 Amoxicillin/Potassium Clav (Amox Tr-K Clv 875-125 mg Tab) 1 Each Tablet, 1 EACH PO BID for 7 Days, #14 TAB Prov:IDLAMIS LAGUNA MD 04/29/22 Methylprednisolone (Medrol) 4 Mg Tab.ds.pk, 4 MG PO AD for 5 Days, #1 KIT Prov:IDALMIS LAGUNA MD 04/29/22 Past Medical History Past Medical History: No Pertinent History, Anxiety Additional Past Medical Hx: CHRONIC BACK PAIN Surgical History: BTL, PSYCH History: anxiety Family History: Negative Social History: Negative, Lives with family History: Not Applicable RN Note Reviewed/Agreed w/PFSH: Yes Review of System Dictation REVIEW OF SYSTEMS: CONSTITUTIONAL: Patient denies fevers, chills, sweats and weight changes. EYES: Patient denies any visual symptoms. EARS, NOSE, AND THROAT: No difficulties with hearing. No symptoms of rhinitis or sore throat. CARDIOVASCULAR: Patient denies chest pains, palpitations, orthopnea and paroxysmal nocturnal dyspnea. RESPIRATORY: No dyspnea on exertion, no wheezing or cough. GI: No nausea, vomiting, diarrhea, constipation, abdominal pain, hematochezia or melena. : No urinary hesitancy or dribbling. No nocturia or urinary frequency. No abnormal urethral discharge. MUSCULOSKELETAL: Reports history of chronic low back pain/herniated disc lumbar spine. Reports worsening pain to left lower back. She denies saddle anesthesia, bowel/bladder incontinence, or lower extremity weakness/paresthesia. NEUROLOGIC: No chronic headaches, no seizures. Patient denies numbness, tingling or weakness. PSYCHIATRIC: Patient denies problems with mood disturbance. No problems with anxiety. ENDOCRINE: No excessive urination or excessive thirst. DERMATOLOGIC: Patient denies any rashes or skin changes. Initial Vital Sign VS Vital Signs Date Time Temp Pulse Resp B/P (MAP) Pulse Ox O2 Delivery O2 Flow Rate FiO2 09/14/25 12:32 97.7 49 20 148/90 97 Room Air Physical Exam Dictation Vital signs: Reviewed. Afebrile Constitutional: Uncomfortable. Accompanied by significant other Head/Face: Normocephalic, atraumatic. Eyes: Periorbital areas with no swelling, redness, or edema. Lids and lashes are normal. Conjunctival injection is absent. Sclera anicteric. Pupils equal, round, reactive to light. ENT: Pinnas intact and no signs of trauma or erythema. Ear canals clear and no discharge. TMs no erythema. No nasal discharge or bleeding noted. Oropharynx with no exudate, redness, swelling, masses, exudates, or evidence of obstruction. Uvula midline. Mucous membranes moist. Neck: Trachea midline, no masses palpated, and no cervical lymphadenopathy. No swelling. Supple, full range of motion. Chest/Axilla: No tenderness, no crepitus, no paradoxical movement, no retractions. Cardiovascular: Regular rate, regular rhythm, no murmur, no gallops. Symmetric pulses. No peripheral edema. BP 148/90 Respiratory: Respirations even and unlabored. Lung sounds clear; no wheezes, rales or rhonchi. Room air SpO2 99% Gastrointestinal: Inspection is normal. No distention is appreciated. Bowel sounds are normal. No mass or organomegaly . There is no tenderness. No rebound. No rigidity. No voluntary or involuntary guarding. No Short's sign. Neurological: Normal speech, gross motor function intact, gross sensory function intact. No focal weakness/Paresthesia. Musculoskeletal/Extremities: Cervical spine: No tenderness, thoracic spine: No tenderness, lumbar spine: No midline spinal tenderness; no paraspinal muscle tenderness. She localizes pain left lower lumbar region just above the bottle. Ambulation limited by pain. No saddle anesthesia. Integumentary: Intact. Skin is normal color, warm and dry. Cap refill less than 3 seconds. ED Course ED Course Orders Procedure Category Date Status Time Hydromorphone 1 Mg PHA 09/14/25 Complete Inj (Dilaudid 1mg Inj 13:00 Ketorolac PHA 09/14/25 Complete Tromethamine 15mg/Ml 13:00 Acetaminophen PHA 09/14/25 Complete (Acetaminophen 13:00 Lidocaine (Lidocaine PHA 09/14/25 Complete Patch 4%) 13:00 Current Medications Medications (Trade) Dose Ordered Sig/Vicente Route PRN Reason Start Time Stop Time Status Last Admin Dose Admin Acetaminophen (acetaMINOPHEN 1,000MG/100ML) 1,000 mg ONCE ONCE IVPB 09/14/25 13:00 09/14/25 13:01 DC Hydromorphone HCl (DiLAUDid 1MG INJ) 1 mg ONCE ONCE IVP 09/14/25 13:00 09/14/25 13:01 DC Ketorolac Tromethamine (toRADol) 15 mg ONCE ONCE IV 09/14/25 13:00 09/14/25 13:01 DC Lidocaine (Lidocaine Patch 4%) 1 each ONCE ONCE TP 09/14/25 13:00 09/14/25 13:01 DC Vital Signs Date Time Temp Pulse Resp B/P (MAP) Pulse Ox O2 Delivery O2 Flow Rate FiO2 09/14/25 12:32 97.7 49 20 148/90 97 Room Air DX & DISP Departure Condition: Stable Referrals: DELORIS MCGEE MD (PCP) DEISY [facility] Sep 14, 2025 13:08
[2025-09-14] MEDS: LIDOCAINE 4% ADH..PATCH TP ONE (14:33)
[2025-09-14] MEDS ORDERED: LIDO1ADH71 TP (14:37)
[2025-09-14] MEDS ORDERED: MELO-108 PO (14:37)
[2025-09-14] MEDS ORDERED: ACET-66 PO (14:37)
--- NOTE | 2025-09-14 15:53 | NUR ---
PENDING TEST RESULTS FOR CT EXAM.
--- NOTE | 2025-09-14 17:27 | HMCIMG ---
EXAM: MR Lumbar Spine Without Intravenous Contrast. CLINICAL HISTORY: Severe back pain. TECHNIQUE: Magnetic resonance images of the lumbar spine in multiple planes. CONTRAST: None. COMPARISON: Radiograph dated 09/12/25. FINDINGS: For this examination, spinal levels were labeled assuming five non-rib bearing, lumbar-type vertebrae with the inferior labeled L5. No acute fracture. Normal lordotic curvature. Mild to moderate degenerative disc height reduction at the L5-S1 level. Normal vertebral body and remaining disc heights. Normal marrow signal of the vertebrae. Conus medullaris terminates at the T12-L1 level. No abnormal epidural masses. The surrounding soft tissues are unremarkable. Individual spinal levels are described as follows: T12-L1: No disc bulge or herniation. No neural foraminal, lateral recess or spinal canal stenosis. L1-L2: No disc bulge or herniation. No neural foraminal, lateral recess or spinal canal stenosis. L2-L3: No disc bulge or herniation. No neural foraminal, lateral recess or spinal canal stenosis. L3-L4: No disc bulge or herniation. No neural foraminal, lateral recess or spinal canal stenosis. L4-L5: No disc bulge or herniation. No neural foraminal, lateral recess or spinal canal stenosis. L5-S1: 5 mm diffuse disc bulge causing mild indentation on the anterior thecal sac, mild bilateral lateral recess narrowing, and mild bilateral foraminal narrowing. IMPRESSION: Mild to moderate degenerative disc height reduction, mild indentation on the anterior thecal sac, mild bilateral lateral recess narrowing, and mild bilateral foraminal narrowing at the L5-S1 level. /[place]
[2025-09-14 17:54] VITALS: BP 148/76; PULSE 88; RESP 19; TEMP 98.1; O2SAT 99
== END 2025-09-14 18:01 | disposition home or self-care (01) ==
LOC: EDH 12:31
DX: M54.50 Low back pain, unspecified (principal); G89.29 Other chronic pain; F41.9 Anxiety disorder, unspecified; Z79.1 Long term (current) use of non-steroidal anti-inflammatories (NSAID); Z98.51 Tubal ligation status; Z98.890 Other specified postprocedural states
CPT/HCPCS: 99285; 96365; 72131; 96375; 84703; 36415; 96376; J1885; J1171 ×2